=== PATIENT | male | born 2000 | race Caucasian/White ===

== ENCOUNTER 2018-11-12 20:30 | Emergency (ER) | payer OTHER ==
--- NOTE | 2018-11-12 20:58 | ED ---
Psychiatric Complaint - HPI Summary HPI Summary: The patient is a 18 y/o M brought in by police and EMS to [facility] with a chief complaint of depression, anxiety, and suicidal ideation worsening tonight. He reports that he has hx of panic disorder, and hes had similar episodes like this in the past where he has been able to speak with a friend in his fraternity or his parents. However, his friend was out of town, and he felt uncomfortable talking to his parents tonight. With his symptoms, he continued to go through a plan of calling [facility], although he was put on hold, and then he was also put on hold when calling the suicide hotline. He then called 911, where EMS and police arrived and escorted him. Currently, his symptoms are rated 0/10 in severity as the SI has seemed to resolve since arrival. He denies any plan, and he has never made an attempt in the past. He was recently placed on Klonopin this past summer for his panic disorder aggravated by an eating disorder. PMHx: anxiety, depression, panic disorder, eating disorder. Nonsmoker, rare EtOH, no substance use. Medications reviewed. Allergies noted. - History Of Current Complaint Chief Complaint: EDMentalHealth Time Seen by Provider: 11/12/18 20:50 Hx Obtained From: Patient Onset/Duration: Gradual Onset, Still Present, Worse Since - throughout the night Timing: Constant Severity Initially: Mild Severity Currently: Moderate Character: Depressed, Anxious Aggravating Factor(s): Other - not having usual "safety nets" available Alleviating Factor(s): Nothing Related History: Positive For: Prior Psychiatric Issues - anxiety, depression, panic disorder Has Suicidal: Reports: Thoughts. Denies: With A Plan - Allergies/Home Medications Allergies/Adverse Reactions: Allergies Allergy/AdvReac Type Severity Reaction Status Date / Time No Known Allergies Allergy Verified 11/12/18 21:13 Home Medications: Home Medications clonazePAM [Clonazepam Odt] 0.25 mg PO DAILY 11/12/18 [History Confirmed ] PMH/Surg Hx/FS Hx/Imm Hx Respiratory History: Denies: Hx Asthma Sensory History: Denies: Hx Legally Blind, Hx Deafness Opthamlomology History: Denies: Hx Legally Blind EENT History: Denies: Hx Deafness Psychiatric History: Reports: Hx Anxiety, Hx Eating Disorder, Hx Depression, Hx Panic Disorder - Surgical History Surgical History: None Surgery Procedure, Year, and Place: none Infectious Disease History: No Infectious Disease History: Denies: Traveled Outside the [place] in Last 30 Days - Family History Known Family History: Negative: Hypertension, Diabetes - Social History Alcohol Use: Rare Hx Substance Use: No Substance Use Type: Reports: None Hx Tobacco Use: No Smoking Status (MU): Never Smoked Tobacco Review of Systems Positive: Anxious, Depressed, Other - SI without plan (resolved in ED) All Other Systems Reviewed And Are Negative: Yes Physical Exam - Summary Physical Exam Summary: Appearance: Well-appearing, Well-nourished, lying in bed comfortably Skin: Warm, dry, no obvious rash Eyes: sclera anicteric, no conjunctival pallor ENT: mucous membranes moist, pharynx appears normal Neck: Supple, nontender Respiratory: Clear to auscultation, no signs of respiratory distress Cardiovascular: Normal S1, S2. No murmurs. Normal distal pulses in tibial and radial bilaterally. Abdomen: Soft, nontender, normal active bowel sounds present Musculoskeletal: Normal, Strength/ROM Intact Neurological: A&Ox3, awake and alert, mentation is normal, speech is fluent and appropriate Psychiatric: Depressed affect, does not appear anxious Triage Information Reviewed: Yes Vital Signs On Initial Exam: Initial Vitals Temp Pulse Resp BP Pulse Ox 97.8 F 83 16 121/89 97 11/12/18 20:46 11/12/18 20:46 11/12/18 20:46 11/12/18 20:46 11/12/18 20:46 Vital Signs Reviewed: Yes Diagnostics - Vital Signs Vital Signs Temp Pulse Resp BP Pulse Ox 11/12/18 20:46 97.8 F 83 16 121/89 97 - Laboratory Lab Statement: Any lab studies that have been ordered have been reviewed, and results considered in the medical decision making process. Re-Evaluation - Re-Evaluation Second Eval Re-Evaluation Time: 21:05 Comment: Pt is medically clear for MHE. Course/Dx - Course Course Of Treatment: Pt is a 18 y/o M with cc of anxiety, depression, and SI tonight without a plan for attempt that has since subsided, although he would like to speak with someone after not having his usual "safety nets" available tonight. Upon physical exam, the pt appears to have a depressed affect. He is medically clear for MHE at 2105. MHE performed by leadite man Kate Mccollum with Dr. Bey, psychiatry, agreeing with d/c of the pt home with dx of depressive disorder and plan for outpatient sources. Pt understands and agrees with this plan. Mental health staff will work on d/c paperwork for the pt. - Differential Dx/Clinical Impression Provider Diagnosis: Depressive disorder - Physician Notifications Discussed Care Of Patient With: Kate Mccollum - mental health leadite man Time Discussed With Above Provider: 23:35 Instructed by Provider To: Other - Kate reports that Dr. Bey, psychiatry, approves pt being discharged home with outpatient sources in place, dx depressive disorder Discharge ED - Sign-Out/Discharge Documenting (check all that apply): Patient Departure - Patient will be discharged home. Patient Received Moderate/Deep Sedation with Procedure: No - Discharge Plan Condition: Good Disposition: HOME Referrals: [facility] [Primary Care Provider] - - Billing Disposition and Condition Condition: GOOD Disposition: Home - Attestation Statements Document Initiated by Scribe: Yes Documenting Scribe: Nisa Espitia Provider For Whom Christine is Documenting (Include Credential): Dr. Antonio Ramos MD Scribe Attestation: Marisela, chao Arriagaibed for Dr. Antonio Ramos MD on 11/13/18 at 1829. Scribe Documentation Reviewed: Yes Provider Attestation: The documentation as recorded by the Nisa steele accurately reflects the service I personally performed and the decisions made by me, Dr. Antonio Ramos MD Status of Scribe Document: Viewed
[2018-11-13 00:18] VITALS: BP 109/65
== END 2018-11-13 00:21 | disposition home or self-care (01) ==
LOC: ED 20:30
DX: F32.9 Major depressive disorder, single episode, unspecified (principal); F41.9 Anxiety disorder, unspecified; Z79.899 Other long term (current) drug therapy; R45.851 Suicidal ideations
CPT/HCPCS: 99283